=== PATIENT | female | born 1935 | race Caucasian/White ===

== ENCOUNTER 2021-09-12 14:30 | Emergency (ER) | payer MEDICARE ==
[~2021-09-12] VITALS: Ht 157.5 cm; Wt 65.8 kg
[~2021-09-12 14:30] MED LIST: AMLODIPINE BES2.5 MG PO; BAYER CHEWABLE81 MG PO; HYDROCODON-ACE1 EA10 PO; LEVOTHYROXINE100 MC2 PO; MECLIZINE HCL12.5 MG PO; MELATIN3 MG PO; MEMANTINE HCL5 MG PO; METOPROLOL SUCC25 MG PO; PAIN RELIEF325 MG PO; QUETIAPINE FUMA25 MG PO; REFRESH LIQUIGE15 ML OPTH; VENLAFAXINE H37.5 M1 PO; [UNRECOGNIZED DRUG - OTHER] MISC
--- OUTSIDE RECORDS SUMMARY | 2021-09-12 14:36 | XMS ---
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 Santi has no Care Guidelines for this patient. [facility] (12 MO.) [facility] NOTE: Visits indicate total known visits. ED/[facility] VISIT TRACKING (12 MO.) 09[facility]12[facility]2021 14:31 [facility] COMPLAINT: - FALL, BACK PAIN 08/23/2021 10:38 [facility] TYPE: Emergency COMPLAINT: - WEAKNESS,NAUSEA INPATIENT VISIT TRACKING (12 MO.) 08/23/2021 15:18 [facility] TYPE: Medical Surgical COMPLAINT: - COVID 19 PNEUMONIA DIAGNOSES: - Do not resuscitate - Hypothyroidism, unspecified - detention (current) use of aspirin - COVID-19 - Other skilled nursing (current) drug therapy - Unspecified mood [affective] disorder - Chronic atrial fibrillation, unspecified - Hypotension, unspecified - Other skilled nursing (current) drug therapy - Hypovolemia - Hypovolemia - Allergy status to penicillin - Essential (primary) hypertension - Allergy status to other drugs, medicaments and biological substances - Mild cognitive impairment, so stated - 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
[2021-09-12] MEDS ORDERED: LIDODERM1 EACH TOP (16:17)
== END 2021-09-12 16:40 | disposition home or self-care (01) ==
LOC: ED 14:30
DX: M54.50 Low back pain, unspecified (principal); I48.91 Unspecified atrial fibrillation; I10 Essential (primary) hypertension; Z88.0 Allergy status to penicillin; Z88.8 Allergy status to other drugs, medicaments and biological substances; Z79.899 Other long term (current) drug therapy; Z79.82 Long term (current) use of aspirin
CPT/HCPCS: 72100; 99283-25; A9270